=== PATIENT | male | born 1955 | race Caucasian/White ===

== ENCOUNTER 2018-11-23 22:14 | Emergency (ER) | payer BC ==
--- NOTE | 2018-11-23 22:34 | EDM.PDOC ---
ED HPI GENERAL MEDICAL PROBLEM - General Chief Complaint: Head Injury Stated Complaint: FALL Time Seen by Provider: 11/23/18 22:34 Source of Information: Reports: Patient - History of Present Illness INITIAL COMMENTS - FREE TEXT/NARRATIVE: HISTORY AND PHYSICAL: History of present illness: [Patient presents with confusion and headaches difficulty with focusing headache is 5 out of 10 diffuse Secondary complaint of rib pain on the right lower rib margins 4 out of 10 pain nonradiating Patient had a fall down a flight of stairs at home on Friday night 12 steps with loss of consciousness per patient 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 having difficulty focusing on the TV monitor employees/workmates had the Rodolfo did not seem to be himself and urged him to come in for evaluation Is not have any weakness he has right-sided paresthesia from previous cervical problems is on Neurontin for this is hardware placement masses noted on CT of concerned cervical spine CT raises question of an cervical spinal epidural hematoma versus mass lesion radiology as recommending MRI for further evaluation pt notes on Friday did have some left facial droop which employee had pointed out of her was not causing any pain at the time so he felt no need for evaluation Review of systems: As per history of present illness and below otherwise all systems reviewed and negative. Past medical history: As per history of present illness and as reviewed below otherwise noncontributory. Surgical history: As per history of present illness and as reviewed below otherwise noncontributory. Social history: No reported history of drug or alcohol abuse. Family history: As per history of present illness and as reviewed below otherwise noncontributory. Physical exam: HEENT: Atraumatic, normocephalic, pupils reactive, negative for conjunctival pallor or scleral icterus, mucous membranes moist, throat clear, neck supple, nontender, trachea midline. Lungs: Clear to auscultation, breath sounds equal bilaterally, chest nontender. Heart: S1S2, regular, negative for clicks, rubs, or JVD. Abdomen: Soft, nondistended, nontender. Negative for masses or hepatosplenomegaly. Negative for costovertebral tenderness. Pelvis: Stable nontender. Genitourinary: Deferred. Rectal: Deferred. Extremities: Atraumatic, negative for cords or calf pain. Neurovascular unremarkable. Neuro: Awake, alert, oriented. Cranial nerves II through XII unremarkable. Cerebellum unremarkable. Motor and sensory unremarkable throughout. Exam nonfocal. Diagnostics: [cBC, CMP, troponin INR EKG Head CT no contrast Cervical spine no contrast Chest 1 view with two-view ribs on the right ] Therapeutics: [I did speak with Dr. Nichole concerning CT findings and radiology request for MRI he accepts transfer of the patient patient be transferred to the ground ambulance Impression: Question cervical spinal epidural hematoma versus mass lesion [ concussion] subAcute infarct right frontal lobe Right-sided chest wall pain Definitive disposition and diagnosis as appropriate pending reevaluation and review of above. Headache Pain Score (Numeric/FACES): 4 - Related Data Allergies Allergy/AdvReac Type Severity Reaction Status Date / Time Penicillins Allergy Difficulty Verified 11/23/18 22:26 Breathing Home Meds: Home Meds Gabapentin [Neurontin] 1 tab PO ASDIRECTED PRN 09/26/16 [History] Past Medical History HEENT History: Reports: Other (See Below) Other HEENT History: wears glasses Cardiovascular History: Reports: Hypertension Other Cardiovascular History: previous HTN with tx, now off medication Gastrointestinal History: Reports: Other (See Below) Other Gastrointestinal History: diagnosed with acute colitis the beginning of july, treated with antibiotics Musculoskeletal History: Reports: Other (See Below) Other Musculoskeletal History: nerve damage on hand Neurological History: Reports: Neuropathy, Peripheral Other Neuro History: 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 Endocrine/Metabolic History: Reports: Obesity/BMI 30+ - Infectious Disease History Infectious Disease History: Reports: Chicken Pox - Past Surgical History Head Surgeries/Procedures: Reports: None Neurological Surgical History: Reports: C-Spine Musculoskeletal Surgical History: Reports: Arthroscopic Knee, Other (See Below) Other Musculoskeletal Surgeries/Procedures:: neck fusion Social & Family History - Family History Family Medical History: Noncontributory GI: Reports: Other (See Below) Other GI Family History: Crohn's; Colonitis - Tobacco Use Smoking Status *Q: Current Every Day Smoker Years of Tobacco use: 45 Packs/Tins Daily: 1.5 - Caffeine Use Caffeine Use: Reports: Tea - Recreational Drug Use Recreational Drug Use: No ED ROS GENERAL - Review of Systems Review Of Systems: See Below ED EXAM, HEAD INJURY - Physical Exam Exam: See Below Course - Vital Signs Last Recorded V/S: Last Vital Signs Temp 98.4 F 11/23/18 23:31 Pulse 64 11/23/18 23:31 Resp 20 11/23/18 23:31 BP 136/70 11/23/18 23:31 Pulse Ox 97 11/23/18 23:31 - Orders/Labs/Meds Orders: Active Orders 24 hr Category Date Time Status EKG 12 Lead [EKG Documentation Completion] [RC] STAT Care 11/23/18 22:33 Active Labs: Laboratory Tests 11/23/18 11/23/18 11/23/18 Range/Units 23:10 23:10 23:10 WBC 6.53 (4.0-11.0) K/uL RBC 4.80 (4.50-5.90) M/uL Hgb 15.3 (13.0-17.0) g/dL Hct 44.9 (38.0-50.0) % MCV 93.5 (80.0-98.0) fL MCH 31.9 (27.0-32.0) pg MCHC 34.1 (31.0-37.0) g/dL RDW Std Deviation 45.0 (28.0-62.0) fl RDW Coeff of Gustavo 13 (11.0-15.0) % Plt Count 186 (150-400) K/uL MPV 8.80 (7.40-12.00) fL Neut % (Auto) 43.4 L (48.0-80.0) % Lymph % (Auto) 44.1 H (16.0-40.0) % [place] % (Auto) 10.3 (0.0-15.0) % Eos % (Auto) 1.7 (0.0-7.0) % Baso % (Auto) 0.5 (0.0-1.5) % Neut # (Auto) 2.8 (1.4-5.7) K/uL Lymph # (Auto) 2.9 H (0.6-2.4) K/uL [place] # (Auto) 0.7 (0.0-0.8) K/uL Eos # (Auto) 0.1 (0.0-0.7) K/uL Baso # (Auto) 0.0 (0.0-0.1) K/uL Nucleated RBC % 0.0 /100WBC Nucleated RBCs # 0 K/uL INR 0.99 Sodium 140 (136-148) mmol/L Potassium 4.6 (3.5-5.1) mmol/L Chloride 103 (98-107) mmol/L Carbon Dioxide 27.7 (21.0-32.0) mmol/L BUN 19 H (7.0-18.0) mg/dL Creatinine 1.1 (0.8-1.3) mg/dL Est Cr Clr Drug Dosing 76.42 mL/min Estimated GFR (MDRD) > 60.0 ml/min Glucose 104 (74-106) mg/dL Calcium 9.0 (8.5-10.1) mg/dL Total Bilirubin 0.7 (0.2-1.0) mg/dL AST 16 (15-37) IU/L ALT 26 (14-63) IU/L Alkaline Phosphatase 58 (46-116) U/L Troponin I < 0.050 (0.000-0.056) ng/mL Total Protein 7.8 (6.4-8.2) g/dL Albumin 4.0 (3.4-5.0) g/dL Globulin 3.8 (2.6-4.0) g/dL Albumin/Globulin Ratio 1.1 (0.9-1.6) Departure - Departure Time of Disposition: 00:22 Disposition: Home, Self-Care 01 Condition: Good, Poor Clinical Impression: Concussion injury of brain - Discharge Information Referrals: PCP,None [Primary Care Provider] - Forms: ED Department Discharge - My Orders Last 24 Hours: My Active Orders 11/23/18 22:33 EKG 12 Lead [EKG Documentation Completion] [RC] STAT - Assessment/Plan Last 24 Hours: My Active Orders 11/23/18 22:33 EKG 12 Lead [EKG Documentation Completion] [RC] STAT
--- NOTE | 2018-11-23 23:24 | CT ---
INDICATION: Headache status post falling down stairs for 4 days ago. Patient confused, poor historian TECHNIQUE: CT Head without i.v. contrast. COMPARISON: None FINDINGS: CSF space: The ventricles are normal for age. Brain: There is a wedge-shaped region of decreased attenuation in the right frontal lobe extending to the mora matter, likely due to cytotoxic edema from a recent subacute infarct. No mass-effect or midline shift is seen. Moderate diffuse cortical atrophy is present. Calvarium: The visualized paranasal sinuses are well aerated. The mastoid air cells are clear. The visualized orbits are grossly unremarkable. The calvarium is unremarkable in appearance with no fractures identified. IMPRESSION: 1. There is a wedge-shaped region of decreased attenuation in the right frontal lobe extending to the mora matter, likely due to cytotoxic edema from a recent subacute infarct. Dictated by Rafael Lindquist MD @ 11/23/2018 11:23:07 PM Please note that all CT scans at this facility use dose modulation, iterative reconstruction, and/or weight-based dosing when appropriate to reduce radiation dose to as low as reasonably achievable. Dictated by: Rafael Lindquist MD @ 11/23/2018 23:23:12 (Electronically Signed)
--- NOTE | 2018-11-23 23:35 | CT ---
INDICATION: Neck injury, fell down stairs for 4 days ago. TECHNIQUE: CT cervical spine without i.v. contrast. Coronal and sagittal reformats were obtained. COMPARISON: None FINDINGS: Alignment: Unremarkable. Bone: No acute fractures or aggressive bone lesions are identified. Anterior spinal fusion with incorporated bone graft and metallic plate noted at C4 through C7. Disc: Moderate degenerative disc narrowing is present at C3-4 and C7-T1. The facet joints are unremarkable. Soft tissue: From the foramen magnum to the C2-3 level, there is a high-density space-occupying structure along the left anterior epidural space. It causes moderate central canal stenosis and mild flattening of the left ventral cord. The prevertebral soft tissues are unremarkable in appearance. The visualized lung apices and mediastinum are unremarkable. IMPRESSION: 1. From the foramen magnum to the C2-3 level, there is a high-density space-occupying structure along the left anterior epidural space. Further evaluation with MRI is recommended to exclude an epidural hematoma or mass lesion. A copy of this report was faxed to Dr. Carbajal at approximately 11:33 PM. Dictated by Rafael Lindquist MD @ 11/23/2018 11:32:47 PM Please note that all CT scans at this facility use dose modulation, iterative reconstruction, and/or weight-based dosing when appropriate to reduce radiation dose to as low as reasonably achievable. Dictated by: Rafael Lindquist MD @ 11/23/2018 23:33:34 (Electronically Signed)
--- NOTE | 2018-11-23 23:42 | CR ---
INDICATION: Right-sided rib pain after falling down stairs. TECHNIQUE: Chest and right ribs 3 views. COMPARISON: None FINDINGS: Cardiovascular and mediastinum: Heart size and vasculature are normal in caliber and appearance. Mediastinum is within normal limits. Lungs and pleural spaces: Lungs are clear. No sign of infiltrate or mass. No sign of pleural effusion. No pneumothorax. Bones and soft tissues: Detailed oblique images of the right ribs demonstrate no fractures or bone lesions. Status post cervicothoracic junction surgery. IMPRESSION: Unremarkable chest and right ribs. Dictated by Rodolfo Tan MD @ Nov 23 2018 11:36PM Signed by Dr. Rodolfo Tan @ Nov 23 2018 11:40PM
[2018-11-23 23:47] LABS: CHLORIDE,CL 103 mmol/L (98-107); SODIUM,NA 140 mmol/L (136-148)
[2018-11-24 00:21] VITALS: BP 137/74
== END 2018-11-24 01:00 ==
LOC: MW.ED 22:14
DX: S06.0X9A Concussion with loss of consciousness of unspecified duration, initial encounter (principal); R07.89 Other chest pain; Z88.0 Allergy status to penicillin; Z79.899 Other long term (current) drug therapy; F17.210 Nicotine dependence, cigarettes, uncomplicated; W10.9XXA Fall (on) (from) unspecified stairs and steps, initial encounter
CPT/HCPCS: 36415; 70450; 70450-26; 71101-26-RT; 71101-RT; 72125; 72125-26; 80053; 84484; 85025; 85610; 93005; 99284; 99285-25

== ENCOUNTER 2020-12-01 19:26 | Emergency (ER) | payer BC ==
[2020-12-01 19:52] VITALS: BP 157/91; PULSE 69
--- NOTE | 2020-12-01 20:17 | EDM.PDOC ---
ED HPI GENERAL MEDICAL PROBLEM - General Chief Complaint: Lower Extremity Injury/Pain Stated Complaint: RT HEEL PAIN Time Seen by Provider: 12/01/20 19:38 - History of Present Illness INITIAL COMMENTS - FREE TEXT/NARRATIVE: History of present illness: [] He has pain in his right heel for 3 weeks. 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 When he walks the pain is unbearable. Pain severe enough it interferes with his sleep and is constantly bothering him. He had similar pain in the left heel in the past which was diagnosed as a heel spur. The patient had new kind of padding in his shoes and since then his left has improved. The patient now has similar pain on the right and his podiatry assumed it was a spur and did a cortisone injection recently. He got no improvement. Review of systems: As per history of present illness and below otherwise all systems reviewed and negative. Past medical history: As per history of present illness and as reviewed below otherwise non contributory. Surgical history: As per history of present illness and as reviewed below otherwise noncontributory. Social history: No reported history of drug or alcohol abuse. Family history: As per history of present illness and as reviewed below otherwise noncontributory. Physical exam: Constitutional - well developed, well-nourished and in no acute distress HEENT - normocephalic, no evidence of trauma - external nose and mouth normal - no mass in neck and no JVD - mucosae moist EYES - full EOM, PERRL, no icterus - no evidence of inflammation, injection, or drainage Respiratory - no respiratory distress, equal bilateral expansion Musculoskeletal point tender on the plantar surface of the heel of the right foot. Externally appears normal there. Normal range of motion of the ankles and toes. No gross deformity of long bones or joints - no tenderness, swelling or edema Neurologic - Alert and oriented times four - CN II-XII grossly intact - motor sensory and coordination symmetrically normal Psychiatric - appropriate mood and affect with normal thought content Hematologic - No petechiae or purpura - mucosa appropriate color and sclera not pale - normal nail bed color Integument - no rash or evidence of trauma - normal turgor Diagnostics: [] Therapeutics: [] Impression: [] Plan: [] Definitive disposition and diagnosis as appropriate pending reevaluation and review of above. right heel Pain Score (Numeric/FACES): 10 - Related Data Allergies Allergy/AdvReac Type Severity Reaction Status Date / Time Penicillins Allergy Difficulty Verified 12/01/20 19:49 Breathing Home Meds: Home Meds Acetaminophen/HYDROcodone [Harts 325-10 MG] 1 tab PO Q4H PRN #12 tab 12/01/20 [Rx] Clopidogrel Bisulfate [Plavix] 75 mg PO DAILY 12/01/20 [History] atorvaSTATin [Lipitor] 80 mg PO DAILY 12/01/20 [History] Past Medical History HEENT History: Reports: Impaired Vision, Other (See Below) Other HEENT History: wears glasses Cardiovascular History: Reports: High Cholesterol, Hypertension Other Cardiovascular History: previous HTN with tx, now off medication Gastrointestinal History: Reports: Other (See Below) Other Gastrointestinal History: diagnosed with acute colitis the beginning of july, treated with antibiotics Musculoskeletal History: Reports: Other (See Below) Other Musculoskeletal History: nerve damage on hand Neurological History: Reports: Neuropathy, Peripheral Other Neuro History: 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 Endocrine/Metabolic History: Reports: Obesity/BMI 30+ - Infectious Disease History Infectious Disease History: Reports: Chicken Pox, Measles, Mumps - Past Surgical History Head Surgeries/Procedures: Reports: None HEENT Surgical History: Reports: Tonsillectomy GI Surgical History: Reports: Colonoscopy Neurological Surgical History: Reports: C-Spine Musculoskeletal Surgical History: Reports: Arthroscopic Knee, Other (See Below) Other Musculoskeletal Surgeries/Procedures:: neck fusion ;knee sx Social & Family History - Family History Family Medical History: No Pertinent Family History GI: Reports: Other (See Below) Other GI Family History: Crohn's; Colonitis - Tobacco Use Tobacco Use Status *Q: Current Every Day Tobacco User Years of Tobacco use: 50 Packs/Tins Daily: 1 - Caffeine Use Caffeine Use: Reports: Tea - Recreational Drug Use Recreational Drug Use: Yes Recreational Drug Type: Reports: Marijuana/Hashish Recreational Drug Use Frequency: Daily Review of Systems - Review of Systems Review Of Systems: Comprehensive ROS is negative, except as noted in HPI. ED EXAM, GENERAL - Physical Exam Exam: See Below Free Text/Narrative:: My physical exam is in the HPI Course - Vital Signs Last Recorded V/S: Last Vital Signs Temp 36.9 C 12/01/20 19:50 Pulse 69 12/01/20 19:50 Resp 18 12/01/20 19:50 BP 157/91 H 12/01/20 19:50 Pulse Ox 98 12/01/20 19:50 Departure - Departure Time of Disposition: 21:00 Disposition: Home, Self-Care 01 Condition: Good Clinical Impression: Bone spur of inferior portion of right calcaneus - Discharge Information Prescriptions: Acetaminophen/HYDROcodone [Harts 325-10 MG] 1 tab PO Q4H PRN #12 tab PRN Reason: Pain (Severe 7-10) Referrals: Omar Novak MD [Primary Care Provider] - Forms: ED Department Discharge Additional Instructions: He needed buy a pad that will fit in the heel of your shoe but have a hole where the spur is. See your laborer wrecking and salvaging as soon as you can. Either proper padding of the shoe or removal of the spur will help. The pain medicine is not a solution is just so that you can rest tonight in the next few nights until he can see your laborer wrecking and salvaging again [facility] [address] [place] [id number] [place] [address] The following information is given to patients seen in the emergency department who are being discharged to home. This information is to outline your options for follow-up care. We provide all patients seen in our emergency department with a follow-up referral. The need for follow-up, as well as the timing and circumstances, are variable depending upon the specifics of your emergency department visit. If you don't have a primary care physician on staff, we will provide you with a referral. We always advise you to contact your personal physician following an emergency department visit to inform them of the circumstance of the visit and for follow-up with them and/or the need for any referrals to a consulting specialist. The emergency department will also refer you to a specialist when appropriate. This referral assures that you have the opportunity for follow-up care with a specialist. All of these measure are taken in an effort to provide you with optimal care, which includes your follow-up. Under all circumstances we always encourage you to contact your private physician who remains a resource for coordinating your care. When calling for follow-up care, please make the office aware that this follow-up is from your recent emergency room visit. If for any reason you are refused follow-up, please contact the [facility] Emergency Department at and asked to speak to the emergency department charge nurse. Sepsis Event Note (ED) - Evaluation Sepsis Screening Result: No Definite Risk - Focused Exam Vital Signs: Vital Signs Temp Pulse Resp BP Pulse Ox 12/01/20 19:50 36.9 C 69 18 157/91 H 98
--- NOTE | 2020-12-01 20:45 | CR ---
Indication: Right foot pain. Technique: Right foot 2 views. Comparison: None. Findings: No acute fracture or dislocation. Mild degenerative changes of the 1st metatarsophalangeal joint. Plantar and Achilles calcaneal spurs. Soft tissues are unremarkable. Impression: No acute findings. Dictated by Laura Pascal MD @ 12/01/2020 8:44:[address] Laura Pascal @ Dec 01 2020 8:44PM
== END 2020-12-01 21:13 | disposition home or self-care (01) ==
LOC: MW.ED 19:26
DX: M77.31 Calcaneal spur, right foot (principal); E78.00 Pure hypercholesterolemia, unspecified; I10 Essential (primary) hypertension; G62.9 Polyneuropathy, unspecified; E66.9 Obesity, unspecified; Z68.27 Body mass index [BMI] 27.0-27.9, adult; Z88.0 Allergy status to penicillin; Z79.02 Long term (current) use of antithrombotics/antiplatelets; Z72.0 Tobacco use; Z79.899 Other long term (current) drug therapy
CPT/HCPCS: 73620-26-RT; 73620-RT; 99283

== ENCOUNTER 2021-08-14 16:41 | Emergency (ER) | payer BC, OTHER ==
[2021-08-14] MEDS ORDERED: Diphtheria,Pertussis(Acell),Tetanus Vaccine 0.5 ML Syringe IM ONE (16:49)
[2021-08-14 17:29] VITALS: PULSE 77
--- NOTE | 2021-08-14 17:55 | CT ---
Indication: Fall, anticoagulated Technique: Nonenhanced axial CT imaging through the head. Sagittal and coronal reconstructions are provided. Comparison: None Findings: There is no evidence of intracranial hemorrhage or cerebral edema. Encephalomalacia changes are noted in the lateral aspect of the right frontal lobe, consistent with old infarct. There is normal size of the ventricles. The basal cisterns are patent. The calvarium is intact. The visualized paranasal sinuses and mastoid air cells are aerated. Laceration and small hematoma are noted in the left parietal scalp. Impression: Left parietal scalp laceration and small hematoma. No evidence of calvarial fracture, intracranial hemorrhage, or brain contusion. Please note that all CT scans at this facility use dose modulation, iterative reconstruction, and/or weight-based dosing when appropriate to reduce radiation dose to as low as reasonably achievable. Dictated by Rico Calle MD @ 08/14/2021 5:55:02 PM (Electronically Signed)
--- NOTE | 2021-08-14 18:21 | EDM.PDOC ---
ED HPI GENERAL MEDICAL PROBLEM - General Chief Complaint: Trauma Stated Complaint: PT FELL WHILE AT WORK Time Seen by Provider: 08/14/21 16:48 - History of Present Illness INITIAL COMMENTS - FREE TEXT/NARRATIVE: CHIEF COMPLAINT(S): Head injury HISTORY OF PRESENT ILLNESS: This is a 65-year-old man with a past medical history of being on blood thinners who presents to the emergency department via walk-in triage with a chief complaint of head injury. The patient states that he was at work when he accidentally tripped and fell and hit his head on the left side without any loss of consciousness. He states that he does use blood thinners. He denies any blurry vision, double vision, loss of vision, numbness, tingling, weakness. He states that he was ambulatory immediately after. He denies any chest pain or shortness of breath. He denies any abdominal pain, nausea or vomiting. He denies any other symptoms REVIEW OF SYSTEMS: Constitutional: Denies fever, chills. Eyes: Denies eye pain Ears, Nose, Mouth, & Throat: Denies earache Cardiovascular: Denies chest pain Respiratory: Denies shortness of breath Gastrointestinal: Denies Nausea, vomiting, diarrhea, hematochezia. Genitourinary: Denies hematuria Skin: Positive for left scalp abrasion Neurological: Positive for head injury without loss of consciousness. Denies blurred vision, double vision, loss of vision, numbness, tingling, weakness Psychiatric: Denies depression PAST MEDICAL HISTORY: As per history of present illness and as reviewed below otherwise noncontributory. SURGICAL HISTORY: As per history of present illness and as reviewed below otherw ise noncontributory. SOCIAL HISTORY: As per history of present illness and as reviewed below otherwise noncontributory. FAMILY HISTORY: As per history of present illness and as reviewed below otherw ise noncontributory. EXAMINATION OF ORGAN SYSTEMS/BODY AREAS: VITALS: Blood pressure is 191/72, heart rate 77, respiratory rate 18 with an oxygen saturation 97% on room air. Temperature 36.1 GENERAL: The patient is well-nourished, well-developed, in no acute distress. HEAD, EARS, EYES, NOSE THROAT: Normocephalic, atraumatic. PERRL. EOM are intact. There was no facial bone tenderness. Ears were clear, no hemotympanum. Oropharynx is clear. No missing or chipped teeth. Neck was supple and nontender. C-collar was cleared clinically RESPIRATORY: No tachypnea. Equal breath sounds are heard bilaterally. Lungs clear to ausculatation. CARDIOVASCULAR: Regular rate and rhythm. Heart sounds were normal. There is no S3, S4, murmur, rub. There is no chest wall tenderness. No crepitus. Radial and dorsalis pedis pulses were palpable and equal bilaterally. ABDOMEN: The abdomen was soft, nondistended, and nontender to palpation. There was no guarding or rebound tenderness. Bowel sounds were present throughout the abdomen and normal. Pelvis was stable and not tender to rock. SPINE: There is no cervical, thoracic or lumbar spine tenderness. EXTREMITIES: Extremity examination revealed no deformity, localized swelling, contusions, or other abnormality. Patient is moving all 4 extremities equally. Distal pulses palpable in bilterally. NEUROLOGICAL: Alert and oriented. On neurological examination Lukas Coma Scale was 15. Facies were symmetrical. Strength was good in all extremities. SKIN: Appropriately warm to touch. No rashes, or pallor. There is a 2 cm superficial abrasion to the left scalp without any active bleeding. MEDICAL DECISION MAKING AND COURSE IN THE ED WITH INTERPRETATION/REVIEW OF DIAGNOSTIC STUDIES: This is a 65-year-old man who is on blood thinners who pres ents to emergency department as a trauma resuscitation. Immediately upon entering the resuscitation bay ATLS protocol was followed, the patient is disrobed, and placed on continuous cardiac monitoring as well as pulse oximetry. Patient tells me their name displaying a patent airway, breath sounds are equal bilaterally, and patient has palpable pulses in all 4 extremities. The patient does not have any gross deformities, and does not have any gross deficit. Upon exposure no further lesions are seen. Palpation of the cervical, thoracic, and lumbar spine reveals no tenderness. At this time we did clear the patient's C- spine clinically. At this time the patient is alert and oriented without any focal deficit. There was no preceding chest pain and the patient had a pure mechanical fall. At this time given the patient is on blood thinners will obtain a CT head without contrast. I do not believe any other labs or imaging are indicated. The radiological images were viewed by myself along with reading the report from the radiologist. CT head without contrast does not reveal any acute intracranial abnormality. After imaging I did discuss the results with the patient. At this time we did clean up the patient's abrasion on his left scalp. At this time I do not believe any mohit or stitches are needed. We will place Dermabond in the area to create a barrier. The patient was amenable to this plan. I did discuss strict return precautions with the patient. He was amenable to discharge and had no further questions. DISPOSITION: The patient was discharged home in stable condition. The patient will follow up with primary care physician in 3 to 5 days PROCEDURES: None FINAL IMPRESSION(S)/DIAGNOSES: 1. Acute closed head injury 2. Acute left scalp abrasion status post Dermabond Rodrick Renteria M.D. head Pain Score (Numeric/FACES): 8 - Related Data Allergies Allergy/AdvReac Type Severity Reaction Status Date / Time Penicillins Allergy Difficulty Verified 08/14/21 17:03 Breathing Home Meds: Home Meds Acetaminophen/HYDROcodone [[place] 325-10 MG] 1 tab PO Q4H PRN #12 tab 12/01/20 [Rx] Clopidogrel Bisulfate [Plavix] 75 mg PO DAILY 12/01/20 [History] atorvaSTATin [Lipitor] 80 mg PO DAILY 12/01/20 [History] Apixaban [Eliquis] 5 mg PO DAILY 08/14/21 [History] Past Medical History HEENT History: Reports: Impaired Vision, Other (See Below) Other HEENT History: wears glasses Cardiovascular History: Reports: High Cholesterol, Hypertension Other Cardiovascular History: previous HTN with tx, now off medication Gastrointestinal History: Reports: Other (See Below) Other Gastrointestinal History: diagnosed with acute colitis the beginning of july, treated with antibiotics Musculoskeletal History: Reports: Other (See Below) Other Musculoskeletal History: nerve damage on hand Neurological History: Reports: Neuropathy, Peripheral Other Neuro History: 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 Endocrine/Metabolic History: Reports: Obesity/BMI 30+ - Infectious Disease History Infectious Disease History: Reports: Chicken Pox, Measles, Mumps - Past Surgical History Head Surgeries/Procedures: Reports: None HEENT Surgical History: Reports: Tonsillectomy GI Surgical History: Reports: Colonoscopy Neurological Surgical History: Reports: C-Spine Musculoskeletal Surgical History: Reports: Arthroscopic Knee, Other (See Below) Other Musculoskeletal Surgeries/Procedures:: neck fusion ;knee sx Social & Family History - Family History Family Medical History: No Pertinent Family History GI: Reports: Other (See Below) Other GI Family History: Crohn's; Colonitis - Caffeine Use Caffeine Use: Reports: Tea Review of Systems - Review of Systems Review Of Systems: See Below ED EXAM, GENERAL - Physical Exam Exam: See Below Course - Vital Signs Last Recorded V/S: Last Vital Signs Temp 36.3 C 08/14/21 18:52 Pulse 77 08/14/21 18:52 Resp 17 08/14/21 18:52 BP 145/70 H 08/14/21 18:52 Pulse Ox 96 08/14/21 18:52 - Orders/Labs/Meds Meds: Medications Discontinued Medications Generic Name Dose Route Start Last Admin Trade Name Freq PRN Reason Stop Dose Admin Diphtheria/Tetanus/Acell Pertussis 0.5 ml 08/14/21 16:49 08/14/21 17:45 Diphtheria,Pertussis(Acell),Tetanus Vaccine 0.5 Ml Syringe IM 08/14/21 16:50 0.5 ml .ONCE ONE Administration Octyl Cyanoacrylate 1 applic 08/14/21 18:46 08/14/21 18:49 Octyl 2-Cyanoacrylate 1 Applic Tube TOP 08/14/21 18:47 1 applic ONETIME ONE Administration Departure - Departure Time of Disposition: 18:20 Disposition: Home, Self-Care 01 Condition: Fair Clinical Impression: Closed head injury, Scalp abrasion - Discharge Information *PRESCRIPTION DRUG MONITORING PROGRAM REVIEWED*: No *COPY OF PRESCRIPTION DRUG MONITORING REPORT IN PATIENT JOSHUA: No Instructions: Head Injury, Adult, [id number], Abrasion, [id number] Referrals: PCP,None [Primary Care Provider] - Forms: ED Department Discharge Additional Instructions: You were evaluated today on an emergent basis. At this time the CT of your head did not reveal any bleeding and you do have a superficial abrasion on your scalp. We did put some glue on this area to keep it clean and together. You may wash your head lightly with soap and water and eventually the glue will fall off. As discussed please use Tylenol and Motrin for pain relief. If you have any worsening symptoms such as weakness on one side of the body or the other, vomiting that starts randomly and you cannot control I would like you to return to the emergency department. Please follow-up with your primary care physician within 3 to 5 days. Please use: Tylenol 500-1000mg every 6 hours (DO NOT TAKE MORE THAN 4000mg in 1 day) Ibuprofen 400mg every 6 hours (Take with food as it can cause ulcers, GI upset) Example schedule: 8:00 AM (Tylenol 500-1000mg) 11:00 AM (Ibuprofen 400mg) 2:00 PM (Tylenol 500-1000mg) 5:00 PM (Ibuprofen 400mg) [facility] [address] [place] [address] [id number] [facility] [address] [place] [id number] The patient is informed of any results of their evaluation and diagnostic workup and all questions are answered. They are given discharge instructions and return precautions. The patient is stable for discharge. The patient states they understand and agree with the plan and that they will return if their symptoms get worse or if they have any new concerns. The following information is given to patients seen in the emergency department who are being discharged to home. This information is to outline your options for follow-up care. We provide all patients seen in our emergency department with a follow-up referral. The need for follow-up, as well as the timing and circumstances, are variable depending upon the specifics of your emergency department visit. If you don't have a primary care physician on staff, we will provide you with a referral. We always advise you to contact your personal physician following an emergency department visit to inform them of the circumstance of the visit and for follow-up with them and/or the need for any referrals to a consulting specialist. The emergency department will also refer you to a specialist when appropriate. This referral assures that you have the opportunity for follow-up care with a specialist. All of these measure are taken in an effort to provide you with optimal care, which includes your follow-up. Under all circumstances we always encourage you to contact your private physician who remains a resource for coordinating your care. When calling for follow-up care, please make the office aware that this follow-up is from your recent emergency room visit. If for any reason you are refused follow-up, please contact the [facility] Emergency Department at and asked to speak to the emergency department charge nurse. Sepsis Event Note (ED) - Evaluation Sepsis Screening Result: No Definite Risk
[2021-08-14] MEDS ORDERED: Octyl 2-Cyanoacrylate 1 APPLIC TUBE TOP ONE (18:46)
[2021-08-14 18:52] VITALS: BP 145/70
== END 2021-08-14 18:54 | disposition home or self-care (01) ==
LOC: MW.ED 16:41
DX: S00.01XA Abrasion of scalp, initial encounter (principal); E66.9 Obesity, unspecified; E78.00 Pure hypercholesterolemia, unspecified; I10 Essential (primary) hypertension; Z68.29 Body mass index [BMI] 29.0-29.9, adult; Z88.0 Allergy status to penicillin; Z79.02 Long term (current) use of antithrombotics/antiplatelets; Z79.01 Long term (current) use of anticoagulants; Z79.899 Other long term (current) drug therapy; Z23 Encounter for immunization; W18.09XA Striking against other object with subsequent fall, initial encounter; Y99.0 Civilian activity done for income or pay
CPT/HCPCS: 12001; 70450; 90471; 90715; 99283; A9270

== ENCOUNTER 2021-09-08 18:58 | Emergency (ER) | payer BC, OTHER ==
[2021-09-08 19:12] VITALS: BP 138/74; PULSE 88
[2021-09-08] MEDS ORDERED: Dexamethasone 10 MG/ML SDV IVPUSH ONE (19:26)
[2021-09-08] MEDS ORDERED: Morphine 4 MG/ML VIAL IVPUSH ONE (19:26)
[2021-09-08 20:20] LABS: BLOOD UREA NITROGEN,BUN 26 mg/dL (7.0-18.0); CARBON DIOXIDE,CO2 24.7 mmol/L (21.0-32.0); CHLORIDE,CL 105 mmol/L (98-107); GLUCOSE RANDOM 93 mg/dL (74-106); POTASSIUM,K 4.3 mmol/L (3.5-5.1); SODIUM,NA 138 mmol/L (136-148)
[2021-09-08] MEDS ORDERED: Orphenadrine 60 MG/2 ML Inj IM ONE (23:12)
== END 2021-09-09 00:42 | disposition home or self-care (01) ==
LOC: MW.ED 18:58
DX: G89.29 Other chronic pain (principal); M54.50 Low back pain, unspecified; E78.00 Pure hypercholesterolemia, unspecified; I10 Essential (primary) hypertension; E66.9 Obesity, unspecified; Z68.29 Body mass index [BMI] 29.0-29.9, adult; Z88.0 Allergy status to penicillin; Z79.02 Long term (current) use of antithrombotics/antiplatelets; Z79.01 Long term (current) use of anticoagulants; Z79.899 Other long term (current) drug therapy
CPT/HCPCS: 36415; 72131; 72192; 80053; 81003; 85025; 85652; 86140; 96372; 96374; 96375; 99284; J1100; J2270; J2360

== ENCOUNTER 2022-04-19 03:16 | Emergency (ER) | payer MEDICARE, MEDICAID ==
[2022-04-19 04:10] LABS: BLOOD UREA NITROGEN,BUN 18 mg/dL (7.0-18.0); CARBON DIOXIDE,CO2 26.6 mmol/L (21.0-32.0); CHLORIDE,CL 100 mmol/L (98-107); GLUCOSE RANDOM 113 mg/dL (74-106); LIPASE 75 U/L (73-393); POTASSIUM,K 4.4 mmol/L (3.5-5.1); SODIUM,NA 136 mmol/L (136-148)
[2022-04-19 04:12] LABS: ESTIMATED GFR 94 mL/min (>60)
[2022-04-19] MEDS ORDERED: Magnesium Oxide 400 MG Tab PO ONE (04:13)
[2022-04-19 04:17] VITALS: BP 130/57; PULSE 86
[2022-04-19] MEDS ORDERED: traMADol 50 MG Tab PO ONE (04:34)
== END 2022-04-19 04:39 | disposition home or self-care (01) ==
LOC: MW.ED 03:16
DX: M62.838 Other muscle spasm (principal); E78.00 Pure hypercholesterolemia, unspecified; I10 Essential (primary) hypertension; E66.9 Obesity, unspecified; Z68.23 Body mass index [BMI] 23.0-23.9, adult; Z88.0 Allergy status to penicillin; Z79.02 Long term (current) use of antithrombotics/antiplatelets; Z79.01 Long term (current) use of anticoagulants; Z79.899 Other long term (current) drug therapy
CPT/HCPCS: 36415; 80053; 82550; 83690; 83735; 84100; 84145; 85025; 99284; A9270

== ENCOUNTER 2023-05-22 09:29 | Inpatient (IN) | payer MEDICARE, MEDICAID ==
[2023-05-22] MEDS ORDERED: Sodium Chloride 0.9% 10 ML Syringe FLUSH PRN ×2 (10:00→15:41)
[2023-05-22] MEDS ORDERED: Sodium Chloride 0.9% 2.5 ML Syringe FLUSH PRN ×2 (10:00→15:41)
[2023-05-22] MEDS ORDERED: Ondansetron 4 MG/2 ML SDV IVPUSH ONE (10:07)
[2023-05-22] MEDS ORDERED: Morphine 2 MG/ML SYRINGE IVPUSH ONE (10:07)
[2023-05-22 10:43] LABS: BASOPHILS ABSOLUTE AUTO 0.05 K/uL (0.00-0.20); BASOPHILS PERCENT AUTO 0.2 % (0.0-1.0); HEMATOCRIT 41.7 % (42.0-52.0); HEMOGLOBIN 13.9 g/dL (14.0-18.0); IMMATURE GRAN ABSOLUTE AUTO 0.24 K/uL (0.00-0.05); IMMATURE GRAN PERCENT AUTO 1.2 % (0.0-0.4); LYMPHOCYTES ABSOLUTE AUTO 1.34 K/uL (1.00-4.80); LYMPHOCYTES PERCENT AUTO 6.6 % (24.0-44.0); MEAN CORPUSCULAR HEMOGLOBIN 31.7 pg (28.0-32.0); MEAN CORPUSCULAR HGB CONC 33.3 g/dL (32.0-36.0); MEAN CORPUSCULAR VOLUME 95.2 fL (83.0-99.0); MEAN PLATELET VOLUME 8.8 fL (9.4-12.4); MONOCYTES ABSOLUTE AUTO 0.81 K/uL (0.00-0.80); NEUTROPHILS ABSOLUTE AUTO 17.85 K/uL (1.80-7.70); PLATELET COUNT,PLT 181 K/uL (150-400); RED BLOOD CELL COUNT 4.38 M/uL (4.52-5.90); WHITE BLOOD CELL COUNT,WBC 20.29 K/uL (3.9-11.3)
[2023-05-22 11:12] LABS: LACTIC ACID 3.6 mmol/L (0.4-2.0)
[2023-05-22] MEDS ORDERED: VANCOmycin 2 GM/400 ML 2 GM in Premix Bag 1 BAG IV ONE (11:15)
[2023-05-22] MEDS ORDERED: Sodium Chloride 0.9% 1,000 ML IV ONE ×3 (11:15→12:15)
[2023-05-22 11:29] LABS: CORONAVIRUS COVID-19 NAA NEGATIVE (NEGATIVE); INFLUENZA A NAA NEGATIVE (NEGATIVE); INFLUENZA B NAA NEGATIVE (NEGATIVE)
[2023-05-22] MEDS ORDERED: Acetaminophen 500 MG Tab PO ONE (11:32)
[2023-05-22] MEDS ORDERED: Ketorolac 30 MG/ML SDV IVPUSH ONE (12:25)
[2023-05-22 12:47] LABS: A/G RATIO 0.8 (0.9-1.6); ALBUMIN 3.8 g/dL (3.4-5.0); CALCIUM 9.2 mg/dL (8.5-10.1); CARBON DIOXIDE,CO2 24.8 mmol/L (21.0-32.0); CREATININE 1.6 mg/dL (0.8-1.3); EST CRCL DRUG DOSING (CG) 47.72 mL/min; PROTEIN TOTAL,TP 8.6 g/dL (6.4-8.2)
[2023-05-22] MEDS ORDERED: Iopamidol 755 MG/ML 500 ML Multipack Bottle IVPUSH ONE ×2 (14:30→14:33)
[2023-05-22] MEDS ORDERED: Docusate Sodium 100 MG Cap PO PRN (15:41)
[2023-05-22] MEDS ORDERED: Albuterol/Ipratropium 3.0-0.5 MG/3 ML Neb Soln NEB PRN (15:41)
[2023-05-22] MEDS ORDERED: Morphine 2 MG/ML SYRINGE IVPUSH PRN (15:41)
[2023-05-22] MEDS ORDERED: Naloxone 0.4 MG/ML SDV IVPUSH PRN (15:41)
[2023-05-22] MEDS ORDERED: Ondansetron 4 MG/2 ML SDV IVPUSH PRN (15:41)
[2023-05-22] MEDS ORDERED: cefTRIAXone 1 GM in Sodium Chloride 0.9% 50 ML IV SCH (15:45)
[2023-05-22] MEDS ORDERED: Calcium Carbonate 500 MG Tab.Chew PO PRN (16:29)
[2023-05-22] MEDS: Pantoprazole 40 MG in Sodium Chloride 0.9% 10 ML IVPUSH SCH (16:54)
[2023-05-22] MEDS: Sodium Chloride 0.9% 1,000 ML IV SCH (16:58)
[2023-05-22] MEDS: Cefepime 2 GM in Sodium Chloride 0.9% 50 ML IV SCH (16:59)
[2023-05-22 18:41] LABS: APPEARANCE,URINE CLEAR; BILIRUBIN,URINE NEGATIVE (NEGATIVE); GLUCOSE,URINE NEGATIVE (NEGATIVE); KETONES,URINE NEGATIVE (NEGATIVE); LEUKOCYTE ESTERASE,URINE NEGATIVE (NEGATIVE); NITRITE,URINE NEGATIVE (NEGATIVE); OCCULT BLOOD,URINE NEGATIVE (NEGATIVE); PROTEIN,URINE NEGATIVE (NEGATIVE); UROBILINOGEN,URINE 0.2 EU/dL (<2.0)
[2023-05-22 18:44] LABS: COLOR,URINE DARK YELLOW
[2023-05-22] MEDS: traMADol 50 MG Tab PO PRN (19:54)
[2023-05-22] MEDS: Apixaban 5 MG Tab PO SCH ×2 (19:54→22:13)
[2023-05-22] MEDS: Acetaminophen 325 MG Tab PO PRN (22:48)
[2023-05-22] MEDS: Baclofen 10 MG Tab PO SCH (22:48)
[2023-05-22] MEDS: Gabapentin 300 MG Cap PO SCH (22:48)
[2023-05-23] MEDS: Sodium Chloride 0.9% 1,000 ML IV SCH ×4 (01:25→20:49)
[2023-05-23] MEDS: Cefepime 2 GM in Sodium Chloride 0.9% 50 ML IV SCH ×2 (03:56→16:25)
[2023-05-23] MEDS: Baclofen 10 MG Tab PO SCH ×3 (05:23→21:25)
[2023-05-23] MEDS: traMADol 50 MG Tab PO PRN ×3 (05:23→20:38)
[2023-05-23] MEDS: Gabapentin 300 MG Cap PO SCH ×3 (05:23→21:26)
[2023-05-23 05:56] LABS: BASOPHILS ABSOLUTE AUTO 0.02 K/uL (0.00-0.20); BASOPHILS PERCENT AUTO 0.2 % (0.0-1.0); HEMATOCRIT 36.6 % (42.0-52.0); HEMOGLOBIN 11.9 g/dL (14.0-18.0); IMMATURE GRAN ABSOLUTE AUTO 0.04 K/uL (0.00-0.05); IMMATURE GRAN PERCENT AUTO 0.3 % (0.0-0.4); LYMPHOCYTES ABSOLUTE AUTO 1.63 K/uL (1.00-4.80); LYMPHOCYTES PERCENT AUTO 12.3 % (24.0-44.0); MEAN CORPUSCULAR HEMOGLOBIN 31.2 pg (28.0-32.0); MEAN CORPUSCULAR HGB CONC 32.5 g/dL (32.0-36.0); MEAN CORPUSCULAR VOLUME 96.1 fL (83.0-99.0); MEAN PLATELET VOLUME 9.1 fL (9.4-12.4); MONOCYTES ABSOLUTE AUTO 0.71 K/uL (0.00-0.80); MONOCYTES PERCENT AUTO 5.3 % (0.0-8.0); NEUTROPHILS ABSOLUTE AUTO 10.88 K/uL (1.80-7.70); NEUTROPHILS PERCENT AUTO 81.9 % (41.0-71.0); PLATELET COUNT,PLT 139 K/uL (150-400); RED BLOOD CELL COUNT 3.81 M/uL (4.52-5.90); WHITE BLOOD CELL COUNT,WBC 13.28 K/uL (3.9-11.3)
[2023-05-23 06:16] LABS: A/G RATIO 0.6 (0.9-1.6); ALBUMIN 2.8 g/dL (3.4-5.0); BILIRUBIN TOTAL 0.8 mg/dL (0.2-1.0); CALCIUM 8.3 mg/dL (8.5-10.1); CARBON DIOXIDE,CO2 22.8 mmol/L (21.0-32.0); CREATININE 1.3 mg/dL (0.8-1.3); EST CRCL DRUG DOSING (CG) 58.73 mL/min; MAGNESIUM 1.9 mg/dL (1.8-2.4); PHOSPHORUS 2.6 mg/dL (2.6-4.7); POTASSIUM,K 4.4 mmol/L (3.5-5.1); PROTEIN TOTAL,TP 7.2 g/dL (6.4-8.2)
[2023-05-23] MEDS: Apixaban 5 MG Tab PO SCH ×2 (08:00→20:38)
[2023-05-23] MEDS: Clopidogrel 75 MG Tab PO SCH (08:00)
[2023-05-23] MEDS ORDERED: VANCOmycin 1.5 GM/300 ML 1.5 GM in Premix Bag 1 BAG IV SCH (12:00)
[2023-05-23] MEDS: Pantoprazole 40 MG in Sodium Chloride 0.9% 10 ML IVPUSH SCH (16:26)
[2023-05-23] MEDS: Acetaminophen 325 MG Tab PO PRN (23:59)
[2023-05-24] MEDS: Sodium Chloride 0.9% 1,000 ML IV SCH ×5 (01:04→23:45)
[2023-05-24] MEDS: Melatonin 3 MG Tab PO PRN ×2 (02:15→23:19)
[2023-05-24] MEDS: Cefepime 2 GM in Sodium Chloride 0.9% 50 ML IV SCH ×2 (03:55→15:51)
[2023-05-24] MEDS: traMADol 50 MG Tab PO PRN ×3 (04:47→23:19)
[2023-05-24] MEDS: Gabapentin 300 MG Cap PO SCH ×3 (05:46→21:05)
[2023-05-24] MEDS: Baclofen 10 MG Tab PO SCH ×3 (05:47→21:05)
[2023-05-24 07:39] LABS: A/G RATIO 0.6 (0.9-1.6); ALBUMIN 2.7 g/dL (3.4-5.0); BILIRUBIN TOTAL 0.6 mg/dL (0.2-1.0); CALCIUM 8.4 mg/dL (8.5-10.1); CREATININE 0.9 mg/dL (0.8-1.3); EST CRCL DRUG DOSING (CG) 84.83 mL/min; POTASSIUM,K 3.9 mmol/L (3.5-5.1); PROTEIN TOTAL,TP 7.3 g/dL (6.4-8.2)
[2023-05-24 07:51] LABS: HEMATOCRIT 34.2 % (42.0-52.0); HEMOGLOBIN 11.2 g/dL (14.0-18.0); MEAN CORPUSCULAR HEMOGLOBIN 31.4 pg (28.0-32.0); MEAN CORPUSCULAR HGB CONC 32.7 g/dL (32.0-36.0); MEAN CORPUSCULAR VOLUME 95.8 fL (83.0-99.0); MEAN PLATELET VOLUME 9.4 fL (9.4-12.4); PLATELET COUNT,PLT 161 K/uL (150-400); RED BLOOD CELL COUNT 3.57 M/uL (4.52-5.90); WHITE BLOOD CELL COUNT,WBC 9.45 K/uL (3.9-11.3)
[2023-05-24 07:52] LABS: BASOPHILS ABSOLUTE AUTO 0.01 K/uL (0.00-0.20); BASOPHILS PERCENT AUTO 0.1 % (0.0-1.0); EOSINOPHILS ABSOLUTE AUTO 0.06 K/uL (0.00-0.45); EOSINOPHILS PERCENT AUTO 0.6 % (0.0-6.0); IMMATURE GRAN ABSOLUTE AUTO 0.05 K/uL (0.00-0.05); IMMATURE GRAN PERCENT AUTO 0.5 % (0.0-0.4); LYMPHOCYTES ABSOLUTE AUTO 1.33 K/uL (1.00-4.80); LYMPHOCYTES PERCENT AUTO 14.1 % (24.0-44.0); MONOCYTES ABSOLUTE AUTO 0.58 K/uL (0.00-0.80); MONOCYTES PERCENT AUTO 6.1 % (0.0-8.0); NEUTROPHILS ABSOLUTE AUTO 7.42 K/uL (1.80-7.70); NEUTROPHILS PERCENT AUTO 78.6 % (41.0-71.0)
[2023-05-24] MEDS: Apixaban 5 MG Tab PO SCH ×3 (08:28→20:59)
[2023-05-24] MEDS: Clopidogrel 75 MG Tab PO SCH (08:28)
[2023-05-24] MEDS ORDERED: Phosphorus #1 250 MG Tab PO ONE (08:35)
[2023-05-24] MEDS: Acetaminophen 325 MG Tab PO PRN ×2 (11:45→19:44)
[2023-05-24] MEDS: Pantoprazole 40 MG in Sodium Chloride 0.9% 10 ML IVPUSH SCH (15:51)
[2023-05-25] MEDS: Acetaminophen 325 MG Tab PO PRN ×2 (02:08→10:50)
[2023-05-25] MEDS: Cefepime 2 GM in Sodium Chloride 0.9% 50 ML IV SCH (03:49)
[2023-05-25] MEDS: Baclofen 10 MG Tab PO SCH (05:04)
[2023-05-25] MEDS: Gabapentin 300 MG Cap PO SCH (05:04)
[2023-05-25] MEDS: Clopidogrel 75 MG Tab PO SCH (09:57)
[2023-05-25] MEDS: Sodium Chloride 0.9% 1,000 ML IV SCH (09:57)
[2023-05-25] MEDS: Apixaban 5 MG Tab PO SCH (09:57)
[2023-05-25 12:47] VITALS: BP 146/65; PULSE 67
== END 2023-05-25 14:10 | disposition home or self-care (01) | DRG 871 ==
LOC: MW.ED 09:29 → MW.MS 15:26
PROVIDERS: ADMIT Family Medicine; ATTEND Family Medicine
DX: A41.9 Sepsis, unspecified organism (principal); J96.01 Acute respiratory failure with hypoxia; L03.115 Cellulitis of right lower limb; R91.8 Other nonspecific abnormal finding of lung field; L03.317 Cellulitis of buttock; I27.82 Chronic pulmonary embolism; Z66 Do not resuscitate; N17.9 Acute kidney failure, unspecified; R65.20 Severe sepsis without septic shock; I10 Essential (primary) hypertension; G89.29 Other chronic pain; Z20.822 Contact with and (suspected) exposure to COVID-19; M19.90 Unspecified osteoarthritis, unspecified site; E78.00 Pure hypercholesterolemia, unspecified; G47.33 Obstructive sleep apnea (adult) (pediatric); E66.9 Obesity, unspecified; M72.2 Plantar fascial fibromatosis; G62.9 Polyneuropathy, unspecified; Z87.891 Personal history of nicotine dependence; Z98.890 Other specified postprocedural states; Z90.89 Acquired absence of other organs; Z88.0 Allergy status to penicillin; Z86.73 Personal history of transient ischemic attack (TIA), and cerebral infarction without residual deficits; Z79.01 Long term (current) use of anticoagulants; Z79.899 Other long term (current) drug therapy; Z98.1 Arthrodesis status; Z68.35 Body mass index [BMI] 35.0-35.9, adult
CPT/HCPCS: 0240U; 36415; 71045; 72170; 72193; 73560; 80053; 80202; 81003; 83605; 83735; 84100; 85025; 87040; 93971; 97161; 97530; 99222; 99232; 99239; 99285; A9270-GY; C9113; J0692; J1885; J2270; J2405; J3370; J3490; J7030; J7050; Q9967

== ENCOUNTER 2023-06-08 10:03 | Emergency (ER) | payer MEDICARE, MEDICAID ==
[2023-06-08] MEDS ORDERED: Sodium Chloride 0.9% 2.5 ML Syringe FLUSH PRN (10:32)
[2023-06-08] MEDS ORDERED: Sodium Chloride 0.9% 10 ML Syringe FLUSH PRN (10:32)
[2023-06-08 11:23] LABS: BASOPHILS ABSOLUTE AUTO 0.06 K/uL (0.00-0.20); BASOPHILS PERCENT AUTO 0.9 % (0.0-1.0); EOSINOPHILS ABSOLUTE AUTO 0.07 K/uL (0.00-0.45); HEMATOCRIT 40.4 % (42.0-52.0); HEMOGLOBIN 13.4 g/dL (14.0-18.0); IMMATURE GRAN ABSOLUTE AUTO 0.03 K/uL (0.00-0.05); IMMATURE GRAN PERCENT AUTO 0.4 % (0.0-0.4); LYMPHOCYTES ABSOLUTE AUTO 2.29 K/uL (1.00-4.80); LYMPHOCYTES PERCENT AUTO 34.1 % (24.0-44.0); MEAN CORPUSCULAR HEMOGLOBIN 31.2 pg (28.0-32.0); MEAN CORPUSCULAR HGB CONC 33.2 g/dL (32.0-36.0); MEAN CORPUSCULAR VOLUME 94.2 fL (83.0-99.0); MEAN PLATELET VOLUME 8.8 fL (9.4-12.4); MONOCYTES ABSOLUTE AUTO 0.65 K/uL (0.00-0.80); MONOCYTES PERCENT AUTO 9.7 % (0.0-8.0); NEUTROPHILS ABSOLUTE AUTO 3.61 K/uL (1.80-7.70); NEUTROPHILS PERCENT AUTO 53.9 % (41.0-71.0); PLATELET COUNT,PLT 258 K/uL (150-400); RED BLOOD CELL COUNT 4.29 M/uL (4.52-5.90); WHITE BLOOD CELL COUNT,WBC 6.71 K/uL (3.9-11.3)
[2023-06-08 11:33] LABS: ALBUMIN 3.3 g/dL (3.4-5.0); BILIRUBIN TOTAL 0.5 mg/dL (0.2-1.0); CALCIUM 9.1 mg/dL (8.5-10.1); CARBON DIOXIDE,CO2 25.2 mmol/L (21.0-32.0); EST CRCL DRUG DOSING (CG) 76.35 mL/min; POTASSIUM,K 4.1 mmol/L (3.5-5.1); PROTEIN TOTAL,TP 8.4 g/dL (6.4-8.2)
[2023-06-08 11:34] LABS: A/G RATIO 0.7 (0.9-1.6)
[2023-06-08 11:38] LABS: LACTIC ACID 1.9 mmol/L (0.4-2.0)
[2023-06-08] MEDS ORDERED: Sulfamethoxazole/Trimethoprim 800-160 MG Tab PO ONE (12:29)
[2023-06-08 12:42] LABS: APPEARANCE,URINE CLEAR; BILIRUBIN,URINE NEGATIVE (NEGATIVE); COLOR,URINE YELLOW; GLUCOSE,URINE NEGATIVE (NEGATIVE); KETONES,URINE NEGATIVE (NEGATIVE); LEUKOCYTE ESTERASE,URINE NEGATIVE (NEGATIVE); NITRITE,URINE NEGATIVE (NEGATIVE); OCCULT BLOOD,URINE NEGATIVE (NEGATIVE); PROTEIN,URINE NEGATIVE (NEGATIVE); UROBILINOGEN,URINE 0.2 EU/dL (<2.0)
[2023-06-08 13:06] VITALS: BP 136/76; PULSE 61
== END 2023-06-08 13:06 | disposition home or self-care (01) ==
LOC: MW.ED 10:03
DX: L03.115 Cellulitis of right lower limb (principal); I10 Essential (primary) hypertension; E66.9 Obesity, unspecified; Z68.33 Body mass index [BMI] 33.0-33.9, adult; Z88.0 Allergy status to penicillin; Z79.899 Other long term (current) drug therapy
CPT/HCPCS: 36415; 80053; 81003; 83605; 85025; 87040; 93971; 99284; A9270; J3490; 99283

== ENCOUNTER 2024-04-24 08:24 | Inpatient (IN) | payer MEDICARE, MEDICAID ==
[2024-04-24] MEDS ORDERED: Sodium Chloride 0.9% 10 ML Syringe FLUSH PRN (08:26)
[2024-04-24] MEDS: Acetaminophen 500 MG Tab PO ONE (09:09)
[2024-04-24] MEDS ORDERED: Ondansetron 4 MG/2 ML SDV IVPUSH PRN (09:16)
[2024-04-24 09:17] LABS: BASOPHILS ABSOLUTE AUTO 0.03 K/uL (0.00-0.20); BASOPHILS PERCENT AUTO 0.2 % (0.0-1.0); EOSINOPHILS ABSOLUTE AUTO 0.02 K/uL (0.00-0.45); EOSINOPHILS PERCENT AUTO 0.2 % (0.0-6.0); HEMATOCRIT 42.2 % (42.0-52.0); HEMOGLOBIN 14.2 g/dL (14.0-18.0); IMMATURE GRAN ABSOLUTE AUTO 0.06 K/uL (0.00-0.05); IMMATURE GRAN PERCENT AUTO 0.5 % (0.0-0.4); LYMPHOCYTES ABSOLUTE AUTO 1.69 K/uL (1.00-4.80); LYMPHOCYTES PERCENT AUTO 12.7 % (24.0-44.0); MEAN CORPUSCULAR HEMOGLOBIN 31.8 pg (28.0-32.0); MEAN CORPUSCULAR HGB CONC 33.6 g/dL (32.0-36.0); MEAN CORPUSCULAR VOLUME 94.6 fL (83.0-99.0); MEAN PLATELET VOLUME 9.3 fL (9.4-12.4); MONOCYTES ABSOLUTE AUTO 1.02 K/uL (0.00-0.80); MONOCYTES PERCENT AUTO 7.7 % (0.0-8.0); NEUTROPHILS ABSOLUTE AUTO 10.47 K/uL (1.80-7.70); NEUTROPHILS PERCENT AUTO 78.7 % (41.0-71.0); PLATELET COUNT,PLT 171 K/uL (150-400); RED BLOOD CELL COUNT 4.46 M/uL (4.52-5.90); WHITE BLOOD CELL COUNT,WBC 13.29 K/uL (3.9-11.3)
[2024-04-24 09:25] LABS: INR 1.05 (0.86-1.11)
[2024-04-24 09:37] LABS: A/G RATIO 0.8 (0.9-1.6); ALANINE AMINOTRANSFERASE,ALT 40 IU/L (14-63); ALBUMIN 3.6 g/dL (3.4-5.0); ALKALINE PHOSPHATASE 86 U/L (46-116); ASPARTATE AMNIOTRANSFERASE,AST 28 IU/L (15-37); BILIRUBIN TOTAL 1.3 mg/dL (0.2-1.0); BLOOD UREA NITROGEN,BUN 14 mg/dL (7.0-18.0); CALCIUM 9.3 mg/dL (8.5-10.1); CARBON DIOXIDE,CO2 24.4 mmol/L (21.0-32.0); CHLORIDE,CL 97 mmol/L (98-107); CREATININE 1.1 mg/dL (0.8-1.3); ESTIMATED GFR 73 mL/min (>60); GLUCOSE RANDOM 370 mg/dL (74-106); LIPASE 21 U/L (16-77); MAGNESIUM 1.5 mg/dL (1.8-2.4); POTASSIUM,K 4.7 mmol/L (3.5-5.1); PRO B-TYPE NATRIUR PEPT,BNPPRO 37 pg/mL (0-125); PROTEIN TOTAL,TP 8.2 g/dL (6.4-8.2); SODIUM,NA 131 mmol/L (136-148)
[2024-04-24] MEDS: Ondansetron 4 MG/2 ML SDV IVPUSH ONE (09:41)
[2024-04-24] MEDS: Morphine 2 MG/ML SYRINGE IVPUSH ONE (09:41)
[2024-04-24 09:43] LABS: BASE EXCESS VENOUS -1.3 (-2.0-3.0); PH,VENOUS 7.4 (7.31-7.41)
[2024-04-24 09:47] LABS: CORONAVIRUS COVID-19 NAA NEGATIVE (NEGATIVE); INFLUENZA A NAA NEGATIVE (NEGATIVE); INFLUENZA B NAA NEGATIVE (NEGATIVE)
[2024-04-24] MEDS: Sodium Chloride 0.9% 1,000 ML IV ONE ×2 (09:56→11:12)
[2024-04-24 10:46] LABS: APPEARANCE,URINE CLEAR; BILIRUBIN,URINE NEGATIVE (NEGATIVE); COLOR,URINE YELLOW; GLUCOSE,URINE >=1000 mg/dL (NEGATIVE); KETONES,URINE NEGATIVE (NEGATIVE); LEUKOCYTE ESTERASE,URINE NEGATIVE (NEGATIVE); NITRITE,URINE POSITIVE (NEGATIVE); OCCULT BLOOD,URINE TRACE-INTACT (NEGATIVE); PROTEIN,URINE 100 mg/dL (NEGATIVE); UROBILINOGEN,URINE 0.2 EU/dL (<2.0)
[2024-04-24 10:55] LABS: WBC,URINE 25-30 (0-5/HPF)
[2024-04-24 10:56] LABS: BACTERIA,URINE 1+ (NEGATIVE); EPITHELIAL CELLS,URINE FEW (NONE-FEW); MUCUS,URINE MODERATE (NONE-MOD)
[2024-04-24] MEDS: cefTRIAXone 2 GM in Sodium Chloride 0.9% 50 ML IV ONE (11:12)
[2024-04-24] MEDS: Magnesium Sulfate/Water 2 GM in Premix Bag 1 BAG IV ONE (11:52)
[2024-04-24] MEDS: Baclofen 10 MG Tab PO PRN (13:16)
[2024-04-24] MEDS: Gabapentin 300 MG Cap PO PRN (13:16)
[2024-04-24] MEDS: traMADol 50 MG Tab PO ONE (13:16)
[2024-04-24] MEDS: Iopamidol 755 MG/ML 500 ML Multipack Bottle IVPUSH STA (13:21)
[2024-04-24] MEDS: Albuterol/Ipratropium 3.0-0.5 MG/3 ML Neb Soln NEB ONE (14:18)
[2024-04-24] MEDS: Azithromycin 500 MG in Sodium Chloride 0.9% 250 ML IV ONE (14:26)
[2024-04-24 15:37] LABS: HEMOGLOBIN A1C 10.2 %
[2024-04-24] MEDS ORDERED: Glucagon,Human Recombinant 1 MG Vial IM PRN (17:26)
[2024-04-24] MEDS ORDERED: 50% Dextrose in Water 50 ML Syringe IVPUSH PRN (17:26)
[2024-04-24] MEDS: Azithromycin 500 MG in Sodium Chloride 0.9% 250 ML IV SCH (17:37)
[2024-04-24] MEDS: Insulin Aspart 100 Units/ML 3 ML Pen SUBCUT SCH (17:40)
[2024-04-24] MEDS: Apixaban 5 MG Tab PO SCH (21:56)
[2024-04-24] MEDS: Morphine 2 MG/ML SYRINGE IVPUSH PRN (21:56)
[2024-04-24] MEDS: Nystatin Topical Powder 15 GM Bottle TOP SCH (21:57)
[2024-04-25] MEDS: Acetaminophen 325 MG Tab PO PRN (00:18)
[2024-04-25] MEDS ORDERED: cefTRIAXone 2 GM in Sodium Chloride 0.9% 50 ML IV SCH (01:00)
[2024-04-25] MEDS: traMADol 50 MG Tab PO PRN (04:45)
[2024-04-25] MEDS: Gabapentin 300 MG Cap PO SCH (06:20)
[2024-04-25] MEDS: Baclofen 10 MG Tab PO SCH (08:54)
[2024-04-25] MEDS: Clopidogrel 75 MG Tab PO SCH (08:54)
[2024-04-25 09:07] LABS: BASOPHILS ABSOLUTE AUTO 0.04 K/uL (0.00-0.20); BASOPHILS PERCENT AUTO 0.3 % (0.0-1.0); EOSINOPHILS ABSOLUTE AUTO 0.01 K/uL (0.00-0.45); EOSINOPHILS PERCENT AUTO 0.1 % (0.0-6.0); HEMATOCRIT 42.1 % (42.0-52.0); HEMOGLOBIN 13.6 g/dL (14.0-18.0); IMMATURE GRAN ABSOLUTE AUTO 0.03 K/uL (0.00-0.05); IMMATURE GRAN PERCENT AUTO 0.3 % (0.0-0.4); LYMPHOCYTES ABSOLUTE AUTO 2.13 K/uL (1.00-4.80); MEAN CORPUSCULAR HEMOGLOBIN 31.4 pg (28.0-32.0); MEAN CORPUSCULAR HGB CONC 32.3 g/dL (32.0-36.0); MEAN CORPUSCULAR VOLUME 97.2 fL (83.0-99.0); MEAN PLATELET VOLUME 8.8 fL (9.4-12.4); MONOCYTES ABSOLUTE AUTO 0.62 K/uL (0.00-0.80); MONOCYTES PERCENT AUTO 5.2 % (0.0-8.0); NEUTROPHILS ABSOLUTE AUTO 9.02 K/uL (1.80-7.70); NEUTROPHILS PERCENT AUTO 76.1 % (41.0-71.0); PLATELET COUNT,PLT 164 K/uL (150-400); RED BLOOD CELL COUNT 4.33 M/uL (4.52-5.90); WHITE BLOOD CELL COUNT,WBC 11.85 K/uL (3.9-11.3)
[2024-04-25 09:26] LABS: CALCIUM 9.1 mg/dL (8.5-10.1); CARBON DIOXIDE,CO2 26.1 mmol/L (21.0-32.0); CREATININE 1.4 mg/dL (0.8-1.3); EST CRCL DRUG DOSING (CG) 53.79 mL/min; POTASSIUM,K 4.1 mmol/L (3.5-5.1)
[2024-04-25] MEDS: cefTRIAXone 2 GM in Sodium Chloride 0.9% 50 ML IV SCH (10:41)
[2024-04-25] MEDS: Azithromycin 500 MG in Sodium Chloride 0.9% 250 ML IV SCH (13:30)
[2024-04-25] MEDS: oxyCODONE 5 MG Tab PO PRN (16:56)
[2024-04-25] MEDS ORDERED: Morphine 2 MG/ML SYRINGE IVPUSH PRN (23:34)
[2024-04-25] MEDS: Melatonin 3 MG Tab PO PRN (23:52)
[2024-04-26 05:59] LABS: BASOPHILS ABSOLUTE AUTO 0.03 K/uL (0.00-0.20); BASOPHILS PERCENT AUTO 0.3 % (0.0-1.0); EOSINOPHILS ABSOLUTE AUTO 0.03 K/uL (0.00-0.45); EOSINOPHILS PERCENT AUTO 0.3 % (0.0-6.0); HEMATOCRIT 38.1 % (42.0-52.0); HEMOGLOBIN 12.6 g/dL (14.0-18.0); IMMATURE GRAN ABSOLUTE AUTO 0.04 K/uL (0.00-0.05); IMMATURE GRAN PERCENT AUTO 0.4 % (0.0-0.4); LYMPHOCYTES PERCENT AUTO 17.3 % (24.0-44.0); MEAN CORPUSCULAR HEMOGLOBIN 31.6 pg (28.0-32.0); MEAN CORPUSCULAR HGB CONC 33.1 g/dL (32.0-36.0); MEAN CORPUSCULAR VOLUME 95.5 fL (83.0-99.0); MEAN PLATELET VOLUME 8.8 fL (9.4-12.4); MONOCYTES ABSOLUTE AUTO 0.91 K/uL (0.00-0.80); MONOCYTES PERCENT AUTO 9.9 % (0.0-8.0); NEUTROPHILS ABSOLUTE AUTO 6.62 K/uL (1.80-7.70); NEUTROPHILS PERCENT AUTO 71.8 % (41.0-71.0); PLATELET COUNT,PLT 160 K/uL (150-400); RED BLOOD CELL COUNT 3.99 M/uL (4.52-5.90); WHITE BLOOD CELL COUNT,WBC 9.23 K/uL (3.9-11.3)
[2024-04-26 06:32] LABS: CARBON DIOXIDE,CO2 24.1 mmol/L (21.0-32.0); CREATININE 0.9 mg/dL (0.8-1.3); EST CRCL DRUG DOSING (CG) 83.67 mL/min
[2024-04-26 09:38] VITALS: BP 124/79; PULSE 82
[2024-04-26] MEDS ORDERED: Azithromycin 250 MG Tab PO SCH (10:00)
[2024-04-26] MEDS ORDERED: Cephalexin 500 MG Cap PO ONE (10:00)
[2024-04-26] MEDS: Cefdinir 300 MG Cap PO ONE (11:46)
[2024-04-26] MEDS: Nitrofurantoin Monohydrate/Macrocrystalline 100 MG Cap PO ONE (11:47)
== END 2024-04-26 13:00 | DRG 194 ==
LOC: MW.ED 08:24 → MW.MS 13:56 → OBSVTOIN 04-25 12:36
PROVIDERS: ADMIT Internal Medicine; ATTEND Internal Medicine
DX: R53.1 Weakness (principal); J18.9 Pneumonia, unspecified organism; M79.605 Pain in left leg; N30.00 Acute cystitis without hematuria; R50.9 Fever, unspecified; R09.02 Hypoxemia; I10 Essential (primary) hypertension; E66.9 Obesity, unspecified; G62.9 Polyneuropathy, unspecified; Z87.2 Personal history of diseases of the skin and subcutaneous tissue; Z86.79 Personal history of other diseases of the circulatory system; Z87.39 Personal history of other diseases of the musculoskeletal system and connective tissue; E78.00 Pure hypercholesterolemia, unspecified; G47.30 Sleep apnea, unspecified; I73.9 Peripheral vascular disease, unspecified; M79.604 Pain in right leg; Z98.1 Arthrodesis status; Z88.0 Allergy status to penicillin; Z79.01 Long term (current) use of anticoagulants; Z79.02 Long term (current) use of antithrombotics/antiplatelets; Z86.718 Personal history of other venous thrombosis and embolism; Z79.899 Other long term (current) drug therapy; Z86.711 Personal history of pulmonary embolism; Z90.89 Acquired absence of other organs; Z98.890 Other specified postprocedural states; Z68.36 Body mass index [BMI] 36.0-36.9, adult; Z86.73 Personal history of transient ischemic attack (TIA), and cerebral infarction without residual deficits
CPT/HCPCS: 0240U; 36415; 71045; 71275; 75635; 80048; 80053; 81001; 82803; 82947; 83036; 83605; 83690; 83735; 83880; 85025; 85610; 85652; 86140; 87040; 87086; 93005; 94640; 96361; 96365; 96366; 96367; 99285; 87088; 87186; 93010; 96375; 99222; 99232; 99238; A9270-GY; G0378; J0456; J0696; J1815-GY; J2270; J3475; J3490; J7030; J7050; J7620-GY; Q9967

== ENCOUNTER 2024-06-01 11:24 | Emergency (ER) | payer MEDICARE, MEDICAID ==
[2024-06-01] MEDS: cefOXitin 2 GM in Sodium Chloride 0.9% 50 ML IV ONE (13:24)
[2024-06-01 13:30] LABS: INR 1.08 (0.86-1.11)
[2024-06-01 13:35] LABS: BASE EXCESS VENOUS 2.7 (-2.0-3.0); PH,VENOUS 7.43 (7.31-7.41)
[2024-06-01 13:36] LABS: BASOPHILS ABSOLUTE AUTO 0.04 K/uL (0.00-0.20); BASOPHILS PERCENT AUTO 0.6 % (0.0-1.0); EOSINOPHILS ABSOLUTE AUTO 0.17 K/uL (0.00-0.45); EOSINOPHILS PERCENT AUTO 2.5 % (0.0-6.0); HEMATOCRIT 38.3 % (42.0-52.0); HEMOGLOBIN 12.6 g/dL (14.0-18.0); IMMATURE GRAN ABSOLUTE AUTO 0.04 K/uL (0.00-0.05); IMMATURE GRAN PERCENT AUTO 0.6 % (0.0-0.4); LYMPHOCYTES ABSOLUTE AUTO 2.05 K/uL (1.00-4.80); MEAN CORPUSCULAR HEMOGLOBIN 30.7 pg (28.0-32.0); MEAN CORPUSCULAR HGB CONC 32.9 g/dL (32.0-36.0); MEAN CORPUSCULAR VOLUME 93.4 fL (83.0-99.0); MEAN PLATELET VOLUME 8.8 fL (9.4-12.4); MONOCYTES ABSOLUTE AUTO 0.82 K/uL (0.00-0.80); NEUTROPHILS ABSOLUTE AUTO 3.71 K/uL (1.80-7.70); NEUTROPHILS PERCENT AUTO 54.3 % (41.0-71.0); PLATELET COUNT,PLT 273 K/uL (150-400); WHITE BLOOD CELL COUNT,WBC 6.83 K/uL (3.9-11.3)
[2024-06-01 13:51] LABS: A/G RATIO 0.7 (0.9-1.6); ALBUMIN 3.2 g/dL (3.4-5.0); BILIRUBIN TOTAL 0.5 mg/dL (0.2-1.0); CALCIUM 9.3 mg/dL (8.5-10.1); EST CRCL DRUG DOSING (CG) 71.67 mL/min; POTASSIUM,K 4.3 mmol/L (3.5-5.1); PROTEIN TOTAL,TP 7.5 g/dL (6.4-8.2)
[2024-06-01] MEDS: VANCOmycin 1.5 GM/300 ML 1.5 GM in Premix Bag 1 BAG IV ONE (16:09)
[2024-06-01] MEDS: Acetaminophen 500 MG Tab PO ONE (19:01)
[2024-06-01] MEDS: Sodium Chloride 0.9% 2.5 ML Syringe FLUSH PRN (19:02)
[2024-06-01] MEDS: Sodium Chloride 0.9% 10 ML Syringe FLUSH PRN (19:02)
[2024-06-01 22:14] VITALS: PULSE 91
[2024-06-01 23:14] VITALS: BP 109/63
== END 2024-06-02 00:17 ==
LOC: MW.ED 11:24
DX: T81.40XA Infection following a procedure, unspecified, initial encounter (principal); I10 Essential (primary) hypertension; E66.9 Obesity, unspecified; Z79.899 Other long term (current) drug therapy; Z79.84 Long term (current) use of oral hypoglycemic drugs; Z88.0 Allergy status to penicillin; Z68.22 Body mass index [BMI] 22.0-22.9, adult; X58.XXXA Exposure to other specified factors, initial encounter
CPT/HCPCS: 36415; 80053; 82803; 83605; 85025; 85610; 87040; 87154; 93926; 96365; 96367; 99284; A9270; J0694; J3372; J3490; 99285

== ENCOUNTER 2025-04-28 09:06 | Emergency (ER) | payer MEDICARE, MEDICAID ==
[2025-04-28] MEDS ORDERED: Sodium Chloride 0.9% 10 ML Syringe FLUSH PRN (09:08)
[2025-04-28] MEDS ORDERED: Sodium Chloride 0.9% 2.5 ML Syringe FLUSH PRN (09:08)
[2025-04-28] MEDS: Lactated Ringers 500 ML IV ONE ×2 (09:40→13:09)
[2025-04-28 10:05] LABS: BASOPHILS ABSOLUTE AUTO 0.01 K/uL (0.00-0.20); BASOPHILS PERCENT AUTO 0.1 % (0.0-1.0); EOSINOPHILS ABSOLUTE AUTO 0.32 K/uL (0.00-0.45); EOSINOPHILS PERCENT AUTO 4.0 % (0.0-6.0); IMMATURE GRAN ABSOLUTE AUTO 0.02 K/uL (0.00-0.05); IMMATURE GRAN PERCENT AUTO 0.3 % (0.0-0.4); LYMPHOCYTES ABSOLUTE AUTO 2.32 K/uL (1.00-4.80); LYMPHOCYTES PERCENT AUTO 29.0 % (24.0-44.0); MEAN PLATELET VOLUME 8.5 fL (9.4-12.4); MONOCYTES ABSOLUTE AUTO 0.78 K/uL (0.00-0.80); MONOCYTES PERCENT AUTO 9.8 % (0.0-8.0); NEUTROPHILS ABSOLUTE AUTO 4.54 K/uL (1.80-7.70); NEUTROPHILS PERCENT AUTO 56.8 % (41.0-71.0); NRBC ABSOLUTE 0.00 K/uL (0.00-0.02); NRBC PERCENT 0.0 /100WBC (0.0-0.2); PLATELET COUNT,PLT 195 K/uL (150-400); RED BLOOD CELL COUNT 4.30 M/uL (4.52-5.90); WHITE BLOOD CELL COUNT,WBC 7.99 K/uL (3.9-11.3)
[2025-04-28 10:12] LABS: GLUCOSE,URINE NEGATIVE (NEGATIVE); OCCULT BLOOD,URINE NEGATIVE (NEGATIVE)
[2025-04-28 10:24] LABS: APPEARANCE,URINE HAZY
[2025-04-28 10:39] LABS: EPITHELIAL CELLS,URINE RARE (NONE-FEW)
[2025-04-28 10:51] LABS: A/G RATIO 1.0 (0.9-1.6); ALANINE AMINOTRANSFERASE,ALT 22.0 IU/L (14-63); ASPARTATE AMNIOTRANSFERASE,AST 18.0 IU/L (15-37); BILIRUBIN TOTAL 1.1 mg/dL (0.2-1.0); BLOOD UREA NITROGEN,BUN 14.0 mg/dL (7.0-18.0); CARBON DIOXIDE,CO2 22.3 mmol/L (21.0-32.0); CHLORIDE,CL 101.0 mmol/L (98-107); CREATININE 1.2 mg/dL (0.8-1.3); EST CRCL DRUG DOSING (CG) 61.88 mL/min; GLUCOSE RANDOM 128.0 mg/dL (74-106); POTASSIUM,K 3.6 mmol/L (3.5-5.1); PRO B-TYPE NATRIUR PEPT,BNPPRO 76.0 pg/mL (0-125); PROTEIN TOTAL,TP 7.6 g/dL (6.4-8.2); SODIUM,NA 136.0 mmol/L (136-148)
[2025-04-28 10:54] LABS: ESTIMATED GFR 65.0 mL/min (>60)
[2025-04-28] MEDS: Iopamidol 755 Mg/ML 100 ML Bottle IVPUSH ONE (11:21)
[2025-04-28] MEDS: Magnesium Sulfate 2 GM/50 mL 2 GM in Premix Bag 1 BAG IV ONE (12:26)
[2025-04-28 13:27] VITALS: BP 96/46; PULSE 83
== END 2025-04-28 13:31 | disposition home or self-care (01) ==
LOC: MW.ED 09:06
DX: N39.0 Urinary tract infection, site not specified (principal); R19.7 Diarrhea, unspecified; R11.0 Nausea; I10 Essential (primary) hypertension; E78.00 Pure hypercholesterolemia, unspecified; E66.9 Obesity, unspecified; Z79.899 Other long term (current) drug therapy; Z79.4 Long term (current) use of insulin; Z88.0 Allergy status to penicillin; Z68.35 Body mass index [BMI] 35.0-35.9, adult
CPT/HCPCS: 36415; 74177; 80053; 81001; 83605; 83690; 83735; 83880; 85025; 85652; 86140; 96361; 96365; 99284; J3475; J7120; Q9967; 99283